=== PATIENT | male | born 1970 | race Hispanic/Latino ===

== ENCOUNTER 2020-02-16 15:48 | Inpatient (IN) | payer OTHER, SELFPAY ==
[~2020-02-16 15:48] MED LIST: EPINEPHrine 1 MG/10 ML Abboject SYRINGE ONE; Sodium Bicarb 50 MEQ/50 ML Abboject 8.4% SYRINGE ONE
[2020-02-16] MEDS ORDERED: Lorazepam 2 MG/ML VIAL ONE (16:21)
[2020-02-16 16:45] LABS: Bilirubin 1+ (Negative); Blood, Urine 3+ (Negative); Clarity Extra Turbid (Clear); Glucose, Urine (Dipstick) Normal (Negative); Ketone, Urine Trace mg/dL (Negative); Leukocyte 250 Leu/uL (Negative); Nitrite Negative (Negative); Protein, Urine (Dipstick) 200 mg/dL (Neg-Trace); Specific Gravity, Urine 1.022 (1.002-1.036); Squamous Epithelial 0-3 HPF (0-3); Transitional Epithelial 0-3 HPF (None Seen); WBC/HPF 21-50 HPF (0-3); pH, Urine 5.5 (5.0-9.0)
[2020-02-16 16:54] LABS: Bacteria/HPF None Seen HPF (None Seen)
[2020-02-16] MEDS ORDERED: Dextrose 50% Abboject 50 ML SYRINGE ONE ×2 (18:04→18:07)
--- NOTE | 2020-02-16 18:31 | RAD ---
PORTABLE CHEST: 02/16/20 HISTORY: Renal failure. Abdominal pain. Lungs show no evidence of infiltrate. Heart size upper normal. Mild vascular engorgement. Evidence of old right clavicle fracture with slight deformity. IMPRESSION: No acute lung process apparent. POS: AGW
[2020-02-16 18:34] LABS: Actual Bicarbonate (HCO3a) 7.7 mEq/L (22-28); Analyzer IN Cardio ER; Base Excess (BEa) -27.7 mEq/L (-2.0 to +3.0); CO2 Tension 54.3 mmHg (35.0-45.0); Calcium, Ionized (arterial) 1.09 mmol/L (1.12-1.30); Hemoglobin (Hb) 13.5 g/dL (14.0-18.0); O2 Tension (PaO2), arterial 77.2 mmHg (80.0-100.0); Potassium - ABG Lab 4.76 mmol/L (3.70-5.30)
[2020-02-16 18:37] LABS: ALV-art Gradient 140.125 mmHg (0-20); Puncture Site R RADIAL; pH, Arterial 6.77 (7.35-7.45)
[2020-02-16 18:40] LABS: ALT (SGPT) 279 U/L (8-55); AST (SGOT) 808 U/L (5-34); Albumin 2.2 g/dL (3.5-5.0); Alkaline Phosphatase 97 U/L (40-110); BUN (Urea Nitrogen) 25 mg/dL (8.4-25.7); Bilirubin, Total 10.1 mg/dL (0.2-1.2); Calc. Creatinine Clearance 0 mL/min (70-130); Calcium 7.2 mg/dL (7.8-10.44); Chloride 102 mmol/L (98-107); Estimated GFR-MDRD 45; Globulin 2.3 g/dL (2.4-3.5); Protein, Total 4.5 g/dL (6.0-8.3); Sodium 132 mmol/L (136-145)
[2020-02-16 18:46] LABS: Carbon Dioxide Less than 8 mmol/L (22-29); Glucose 49 mg/dL (70-105)
[2020-02-16] MEDS ORDERED: Norepinephrine 8 MG/0.9% NS 250 ML ONE (18:46)
[2020-02-16] MEDS ORDERED: EPINEPHrine 1 MG/10 ML Abboject SYRINGE ONE (18:48)
[2020-02-16] MEDS ORDERED: Ketamine 50 MG/ML (10ML VIAL) ONE (18:51)
[2020-02-16] MEDS ORDERED: Rocuronium Bromide 10 MG/ML (10ML VIAL) ONE (18:51)
[2020-02-16 19:30] LABS: Actual Bicarbonate (HCO3a) 7.4 mEq/L (22-28); Analyzer IN Cardio ER; Base Excess (BEa) -25.9 mEq/L (-2.0 to +3.0); CO2 Tension 41.7 mmHg (35.0-45.0); Calcium, Ionized (arterial) 1.08 mmol/L (1.12-1.30); Carboxyhemoglobin (COHb) 0.3 gm% (0.0-3.0); Hemoglobin (Hb) 13.9 g/dL (14.0-18.0); O2 Tension (PaO2), arterial 198.3 mmHg (80.0-100.0); Potassium - ABG Lab 4.81 mmol/L (3.70-5.30)
[2020-02-16 19:39] LABS: pH, Arterial 6.87 (7.35-7.45)
[2020-02-16 19:40] LABS: ALV-art Gradient 462.575 mmHg (0-20); Puncture Site L RADIAL
--- NOTE | 2020-02-16 19:52 | RAD ---
PORTABLE SUPINE CHEST: 02/16/20 INDICATIONS: Post intubation. COMPARISON: Film earlier today. FINDINGS/IMPRESSION: ET tube has been placed and tip is above the jorge. An NG tube is in place and this tube passes thro ugh the EG junction. Mild cardiomegaly and mild vascular engorgement. No focal infiltrate or consolidation. No interval ch isela in the appearance of the chest. POS: AGW
[2020-02-16] MEDS ORDERED: Electrolyte Replacement Protoc 1 EACH EACH IVPB PRN (20:33)
[2020-02-16] MEDS ORDERED: Acetaminophen 325 MG Suppository PR PRN (20:33)
[2020-02-16] MEDS ORDERED: Dextrose 5% in Water 1,000 ML IV PRN (20:33)
--- NOTE | 2020-02-16 20:43 | PDOC.HHP ---
Hospitalist HPI - History of Present Illness AMS History of Present Illness: -year-old gentleman with a history of liver cirrhosis presented to [facility] due to abdominal pain and bilateral lower extremity pain 4 days duration as well as shortness of breath. Work-up at the hospital revealed lacti c acid of 14, potassium of 2.6, elevated bilirubin and liver enzymes, creatinine of 2.1. CT scan of the abdomen and pelvis done showed cirrhotic liver with portal hypertension and splenomegaly as well as perinephric stranding. Patient was given a bolus of normal saline given IV Zosyn and vancomycin, given potassium replacement. He then developed hypoxia for which he was placed on oxygen by nasal cannula. Patient was also noted to be hypothermic and hypotensive and tachypneic. Patient was then transferred here for further management. ED Course: In the ED patient was given another bolus of normal saline, ammonia level, repeat lactate, blood cultures and urine cultures were obtained. Patient desaturated on oxygen by nasal cannula. Arterial blood gas showed severe metabolic acidosis with a pH of 6.7. His BMP showed severe metabolic acidosis with a bicarb of less than 8. Patient was subsequently intubated. He was still hypotensive and hypothermic. Ammonia level was 60. He was also hypoglycemic with blood glucose in the 40s. Patient started on Levophed drip. Warming blanket placed. He was also started on bicarb drip after bolus of 2 Amps of bicarb. Hospitalist ROS - Review of Systems ROS unobtainable: due to mental status Hospitalist History - Past Medical History Cardiac: reports: Other (Alcoholic liver cirrhosis) - Past Surgical History Other Surgical History: Not known - Family History Other Family History: Unable to obtain. - Social History Other Social History: There is a report he quit drinking. - Exam General - other findings: Unresponsive Eye: PERRL, scleral icterus ENT: normocephalic atraumatic ENT - other findings: Intubated Neck: supple, symmetric, no JVD Heart: diminshed peripheral pulses Heart - other findings: Tachycardic. Respiratory: CTAB, no wheezes Gastrointestinal: soft, non-tender, non-distended, normal bowel sounds Extremities: no cyanosis, no edema Skin: normal turgor Neurological - other findings: Sedated Psychiatric - other findings: Sedated. Hospitalist Results - Labs Result Diagrams: 02/17/20 04:51 02/17/20 04:51 Lab results: ABG pH 6.87 (7.35-7.45) L* 02/16/20 19:20 ABG pCO2 41.7 mmHg (35.0-45.0) 02/16/20 19:20 ABG pO2 198.3 mmHg (80.0-100.0) H 02/16/20 19:20 Sodium 132 mmol/L (136-145) L 02/16/20 16:45 Potassium 3.0 mmol/L (3.5-5.1) L 02/16/20 16:45 Chloride 102 mmol/L (98-107) 02/16/20 16:45 Carbon Dioxide Less than 8 mmol/L (22-29) L* 02/16/20 16:45 BUN 25 mg/dL (8.4-25.7) 02/16/20 16:45 Creatinine 1.62 mg/dL (0.7-1.3) H 02/16/20 16:45 Glucose 49 mg/dL (70-105) L* 02/16/20 16:45 Lactic Acid Greater than 13.4 mmol/L (0.5-2.2) H* 02/16/20 16:32 Calcium 7.2 mg/dL (7.8-10.44) L 02/16/20 16:45 Total Bilirubin 10.1 mg/dL (0.2-1.2) H 02/16/20 16:45 AST 808 U/L (5-34) H 02/16/20 16:45 ALT 279 U/L (8-55) H 02/16/20 16:45 Alkaline Phosphatase 97 U/L (40-110) 02/16/20 16:45 Ammonia 67 umol/L (18-72) 02/16/20 16:32 Serum Total Protein 4.5 g/dL (6.0-8.3) L 02/16/20 16:45 Albumin 2.2 g/dL (3.5-5.0) L 02/16/20 16:45 Urine Ketones Trace mg/dL (Negative) A 02/16/20 16:28 Urine Blood 3+ (Negative) A 02/16/20 16:28 Urine Nitrite Negative (Negative) 02/16/20 16:28 Ur Leukocyte Esterase 250 Lesvia/uL (Negative) A 02/16/20 16:28 Urine RBC 4-6 HPF (0-3) A 02/16/20 16:28 Urine WBC 21-50 HPF (0-3) A 02/16/20 16:28 Ur Squamous Epith Cells 0-3 HPF (0-3) 02/16/20 16:28 Urine Bacteria None Seen HPF (None Seen) 02/16/20 16:28 Hospitalist H&P A/P - Problem (1) Septic shock Code(s): A41.9 - SEPSIS, UNSPECIFIED ORGANISM; R65.21 - SEVERE SEPSIS WITH SEPTIC SHOCK Status: Acute Assessment and Plan: Source of sepsis likely acute pyelonephritis. Aggressive IV hydration D5 W+ 3 Amp bicarb. Levophed drip. Aggressive antibiotic therapy-cefepime and vancomycin. Follow blood cultures and urine culture. Obtain sputum culture if possible. (2) Acute respiratory failure with hypoxia Code(s): J96.01 - ACUTE RESPIRATORY FAILURE WITH HYPOXIA Status: Acute Assessment and Plan: Secondary to sepsis. Patient on mechanical ventilation. Consulted pulmonary to assist with management. (3) Metabolic acidosis Code(s): E87.2 - ACIDOSIS Status: Acute Assessment and Plan: Secondary to sepsis. Obtain alcohol level. Patient given 2 Amps of bicarb Bicarb drip Repeat venous blood gas in 6 hours and repeat bicarb boluses as needed for target pH of 7.2. Monitor BMP (4) Hypoglycemia Code(s): E16.2 - HYPOGLYCEMIA, UNSPECIFIED Status: Acute Assessment and Plan: Secondary to liver failure and acidosis. Hypoglycemia protocol initiated. D5W infusion. Monitor glucose every 1 hour. D50 boluses as needed. (5) Alcoholic cirrhosis of liver Code(s): K70.30 - ALCOHOLIC CIRRHOSIS OF LIVER WITHOUT ASCITES Status: Acute Qualifiers: Ascites presence: without ascites Qualified Code(s): K70.30 - Alcoholic cirrhosis of liver without ascites Assessment and Plan: Ammonia level unremarkable Check coagulation profile to assess for extent of liver failure. (6) Acute pyelonephritis Code(s): N10 - ACUTE PYELONEPHRITIS Status: Acute Assessment and Plan: UA suggest the presence of UTI. CT abdomen pelvis showed perinephric stranding. Aggressive antibiotic therapy. Follow cultures. Lopez catheter is in place. - Plan Plan: Critical care time spent was about 55 minutes.
[2020-02-16] MEDS ORDERED: Ventilator Sedation Protocol 1 EACH FS SCH (20:45)
[2020-02-16] MEDS ORDERED: Morphine 2 MG/ML VIAL SLOW IVP PRN (21:00)
[2020-02-16] MEDS ORDERED: Vancomycin 1 GM in Premix Bag 1 BAG IVPB SCH (21:00)
[2020-02-16] MEDS ORDERED: Propofol 1,000 MG/100 ML VIAL IV PRN (21:00)
[2020-02-16] MEDS ORDERED: Famotidine/PF 20 mg/2ml Vial SLOW IVP SCH (21:00)
[2020-02-16] MEDS ORDERED: Fentanyl BOLUS 250 ML IVPB PRN (21:00)
[2020-02-16] MEDS ORDERED: Lorazepam 2 MG/ML VIAL SLOW IVP PRN (21:00)
[2020-02-16] MEDS ORDERED: Cefepime 2 GM in Sodium Chloride 0.9% 100 ML IVPB SCH (21:00)
[2020-02-16] MEDS ORDERED: Propofol BOLUS 1,000 MG/100 ML VIAL IV PRN (21:00)
[2020-02-16] MEDS ORDERED: DISCONTINUE PREVIOUS NARCOTIC PAIN MEDICATIONS AND BENZODIAZEPINES FS SCH (21:00)
[2020-02-16] MEDS ORDERED: fentaNYL Citrate/PF 2,000 MCG in Sodium Chloride 0.9% 60 ML IV SCH (21:00)
[2020-02-16 21:41] LABS: Lactic Acid 16.2 mmol/L (0.5-2.2)
[2020-02-16 21:45] LABS: SARS-CoV-2 NAA Rapid Test Not Detected (NotDetected)
[2020-02-16 21:47] LABS: PTT 98.4 sec (22.9-36.1); Prothrombin Time 93.5 sec (12.0-14.7)
[2020-02-16 21:49] LABS: INR-International Normal Ratio 12.7
[2020-02-16 21:52] VITALS: BMI 30.4
[2020-02-16 21:54] LABS: Actual Bicarbonate (HCO3a) 6.2 mEq/L (22-28); Base Excess (BEa) -25.8 mEq/L (-2.0 to +3.0); CO2 Tension 31.9 mmHg (35.0-45.0); Calcium, Ionized (arterial) 0.98 mmol/L (1.12-1.30); Carboxyhemoglobin (COHb) 0.4 gm% (0.0-3.0); Hemoglobin (Hb) 13.7 g/dL (14.0-18.0); Potassium - ABG Lab 5.18 mmol/L (3.70-5.30)
[2020-02-16 21:58] LABS: pH, Arterial 6.91 (7.35-7.45)
[2020-02-16 21:59] LABS: ALV-art Gradient 443.525 mmHg (0-20); Puncture Site RR
[2020-02-16 22:00] LABS: Alcohol Less than 10 mg/dL (Less than 10); BUN (Urea Nitrogen) 28 mg/dL (8.4-25.7); Calc. Creatinine Clearance 53 mL/min (70-130); Calcium 6.2 mg/dL (7.8-10.44); Carbon Dioxide Less than 8 mmol/L (22-29); Chloride 103 mmol/L (98-107); Estimated GFR-MDRD 38; Glucose 189 mg/dL (70-105); Potassium 4.9 mmol/L (3.5-5.1); Sodium 132 mmol/L (136-145)
[2020-02-16] MEDS ORDERED: Sodium Bicarb 50 MEQ/50 ML Abboject 8.4% SYRINGE ONE ×2 (22:03→22:05)
[2020-02-16] MEDS ORDERED: Sodium Bicarb 50 MEQ/50 ML Abboject 8.4% SYRINGE IVP SCH (22:15)
[2020-02-16] MEDS: Sodium Bicarbonate 150 MEQ in Dextrose 5% in Water 1,000 ML IV SCH (22:19)
[2020-02-16] MEDS ORDERED: Vasopressin 20 UNIT, Admixture Fee 1 EACH in Sodium Chloride 0.9% 50 ML IV PRN (22:24)
[2020-02-16] MEDS: Albumin 25% 25 GM/100 ML BOT IVPB SCH (22:26)
[2020-02-16] MEDS ORDERED: Phytonadione 10 MG in Sodium Chloride 0.9% 50 ML IVPB SCH (23:00)
[2020-02-16] MEDS: Hydrocortisone Sod Succ/PF 100 MG in Sodium Chloride 0.9% 50 ML IVPB SCH (23:03)
--- NOTE | 2020-02-16 23:07 | CON ---
DATE OF CONSULTATION: 02/16/2020 CONSULTING PHYSICIAN: Bronson Wall MD from the hospitalist group. REASON FOR CONSULTATION: Critical care management. Following encompasses 45 minutes of critical care time. HISTORY OF PRESENT ILLNESS: The patient is a 49-year-old male, who apparently has a history of liver cirrhosis, who presented to the Hospital earlier today with abdominal pain as well as lower extremity pain. He was found to have severe lactic acidosis and altered mental status. He apparently became obtunded in the emergency room and was intubated. He was also noted to be hypotensive and hypothermic with an elevated ammonia level. History and chart are very sparse. PAST MEDICAL HISTORY: Apparent cirrhosis of liver. PAST SURGICAL HISTORY: Not known. ALLERGIES: UNKNOWN. MEDICATIONS: Prior to admission, none. SOCIAL HISTORY: Unknown. REVIEW OF SYSTEMS: Cannot be obtained because the patient is intubated. PHYSICAL EXAMINATION: VITAL SIGNS: Pulse is 123, O2 saturation 100%, respiratory rate 28, and blood pressure 99/55. GENERAL: This patient is jaundiced and has icteric sclerae. He is unresponsive to deep painful stimuli. Apparently, he has not received any sedation since being given Ativan in the ER. HEENT: Shows icteric sclerae. Oropharynx is intubated. NECK: No JVD. LUNGS: Clear anteriorly. CARDIOVASCULAR: S1 and S2. Tachycardic without murmur. ABDOMEN: Soft and nontender to palpation. EXTREMITIES: No clubbing, cyanosis, or edema. IMAGING DATA: The chest x-ray does not show any focal findings. He is intubated. He has an NG tube in stomach. LABORATORY DATA: ABG; pH of 6.91, pCO2 of 31, and pO2 of 87, that is on SIMV rate 28, tidal volume 500, PEEP 7, pressure support 10, and FiO2 of 80%. Sodium 132, potassium 4.9, chloride 103, CO2 less than 8, BUN 28, creatinine 1.8, glucose 189, lactate 16.2, AST 808, ALT 279, total bilirubin 10.1, albumin 2.2, and cortisol 33. INR is 12.7 and PTT 98.4. Alcohol level is less than 10. Urinalysis showed 21 to 50 white blood cells. Apparently imaging of his abdomen from other hospital showed perinephric stranding consistent with urinary tract infection/pyelonephritis. ASSESSMENT: 1. Septic shock secondary to urinary tract infection/pyelonephritis. 2. Severe metabolic acidosis. 3. Acute on chronic liver failure. 4. Acute respiratory failure requiring mechanical ventilation. PLAN: This patient presents with multiple organ failure on top of chronic liver disease. Given the degree of his metabolic acidosis, his condition is grave and he is unlikely to survive. We are trying to give him extra bicarbonate for supportive measures. He is on empiric antibiotics. He is on Levophed. He should be started on stress dose hydrocortisone as that sometimes helpful in acute liver failure. He needs to be given FFP to help correct his coagulopathy. We will need to monitor his blood gases and bolus bicarb as needed. Job ID: [id number]
[2020-02-16] MEDS: Norepinephrine 8 MG/0.9% NS 250 ML IVPB PRN (23:27)
[2020-02-17 00:10] LABS: Actual Bicarbonate (HCO3a) 7.2 mEq/L (22-28); Base Excess (BEa) -22.6 mEq/L (-2.0 to +3.0); CO2 Tension 28.5 mmHg (35.0-45.0); Calcium, Ionized (arterial) 0.87 mmol/L (1.12-1.30); Carboxyhemoglobin (COHb) 0.2 gm% (0.0-3.0); Hemoglobin (Hb) 12.6 g/dL (14.0-18.0); O2 Tension (PaO2), arterial 85.6 mmHg (80.0-100.0); Potassium - ABG Lab 5.34 mmol/L (3.70-5.30)
[2020-02-17] MEDS: Dextrose 50% Abboject 50 ML SYRINGE SLOW IVP PRN ×2 (00:10→02:43)
[2020-02-17 00:17] LABS: pH, Arterial 7.02 (7.35-7.45)
[2020-02-17 00:18] LABS: ALV-art Gradient 449.175 mmHg (0-20); Puncture Site RRA
[2020-02-17] MEDS ORDERED: Sodium Bicarb 50 MEQ/50 ML Abboject 8.4% SYRINGE ONE ×4 (00:20→04:38)
[2020-02-17] MEDS ORDERED: Sodium Bicarb 50 MEQ/50 ML Abboject 8.4% SYRINGE IVP SCH ×3 (00:45→04:45)
[2020-02-17 02:12] VITALS: BP 83/46
[2020-02-17] MEDS ORDERED: Dextrose 50% Abboject 50 ML SYRINGE ONE (02:40)
[2020-02-17] MEDS ORDERED: Phenylephrine 40 MG in Sodium Chloride 0.9% 250 ML 250 ML IVPB SCH (02:45)
[2020-02-17] MEDS: Albumin 25% 25 GM/100 ML BOT IVPB SCH (03:29)
[2020-02-17] MEDS: Norepinephrine 8 MG/0.9% NS 250 ML IVPB PRN (03:48)
[2020-02-17 04:25] VITALS: TEMP 98.1
[2020-02-17 04:26] LABS: Actual Bicarbonate (HCO3a) 6.9 mEq/L (22-28); Base Excess (BEa) -20.5 mEq/L (-2.0 to +3.0); Calcium, Ionized (arterial) 0.72 mmol/L (1.12-1.30); Carboxyhemoglobin (COHb) 0.3 gm% (0.0-3.0); O2 Tension (PaO2), arterial 121.6 mmHg (80.0-100.0); Potassium - ABG Lab 6.45 mmol/L (3.70-5.30)
[2020-02-17 04:28] LABS: CO2 Tension 21.3 mmHg (35.0-45.0); Puncture Site RRA; pH, Arterial 7.13 (7.35-7.45)
[2020-02-17 04:30] LABS: ALV-art Gradient 422.175 mmHg (0-20)
[2020-02-17 05:07] LABS: Prothrombin Time 43.1 sec (12.0-14.7)
[2020-02-17 05:09] LABS: INR-International Normal Ratio 4.6
[2020-02-17 05:18] LABS: Platelet Count 10 thou/uL (130-400)
[2020-02-17 05:25] LABS: Band 22 % (5-11); Elliptocytes SLIGHT = 2-5 cells (100X) (0-1/hpf); Eosinophils 2 % (0-10); Hemoglobin 8.6 g/dL (14.0-18.0); Lymphocytes 13 % (21-51); MDiff Complete? YES; Mean Corpuscular HGB CONC 33.8 g/dL (32.0-36.0); Mean Corpuscular Hemoglobin 36.7 pg (27.0-31.0); Mean Platelet Volume 13.6 fL (7.4-10.4); Metamyelocyte 12 % (0-0); Monocytes 15 % (0-10); Neutrophil 36 % (42-75); Nucleated RBC 14 % (0); Platelet Morphology Comment Appears Decreased; RBC Distribution Width 16.3 % (11.5-14.5); Red Blood Cell (RBC) Count 2.34 mill/uL (4.70-6.10); Reflex for Review?? YES; Vacuoles SLIGHT; White Blood Cell (WBC) Count 3.1 thou/uL (4.8-10.8)
[2020-02-17 05:30] LABS: ALT (SGPT) 280 U/L (8-55); AST (SGOT) 1104 U/L (5-34); Albumin 2.1 g/dL (3.5-5.0); Alkaline Phosphatase 128 U/L (40-110); Anion Gap 50 mmol/L (10-20); BUN (Urea Nitrogen) 30 mg/dL (8.4-25.7); Bilirubin, Total 8.3 mg/dL (0.2-1.2); Calc. Creatinine Clearance 39 mL/min (70-130); Calcium 5.8 mg/dL (7.8-10.44); Carbon Dioxide 10 mmol/L (22-29); Chloride 95 mmol/L (98-107); Estimated GFR-MDRD 26; Globulin 1.2 g/dL (2.4-3.5); Glucose 60 mg/dL (70-105); Potassium 7.3 mmol/L (3.5-5.1); Protein, Total 3.3 g/dL (6.0-8.3); Sodium 148 mmol/L (136-145)
[2020-02-17] MEDS: Hydrocortisone Sod Succ/PF 100 MG in Sodium Chloride 0.9% 50 ML IVPB SCH (05:42)
[2020-02-17] MEDS: Sodium Bicarbonate 150 MEQ in Dextrose 5% in Water 1,000 ML IV SCH (05:43)
[2020-02-17] MEDS ORDERED: Calcium Gluc 4.6 MEQ/10 ML (100 MG/ML) SLOW IVP SCH (06:00)
--- NOTE | 2020-02-17 06:13 | PDOC.EVN ---
Event Note - Event Note Event Note: Code blue called at 0556, pt asystole, CPR began. Pt in septic shock not improving after maximal therapy including regular bicarb administration and pressors overnight. Resuscitation unsuccessful after multiple rounds, considering pts overall prognosis and previous interventions overnight, resuscitation was discontinued after consultation with Dr. Wright. TOD 0603. Family notified.
[2020-02-17] MEDS ORDERED: FLU VACC QS2020-21(6MOS UP)/PF 60 MCG/0.5 ML SYRINGE IM ONE (09:00)
[2020-02-17] MEDS ORDERED: Prevnar 13-Val Conj/PF 0.5 ML SYRINGE IM ONE (09:00)
[2020-02-17] MEDS ORDERED: Vancomycin 1.5 GRAM/300 ML BAG 1.5 GM in Premix Bag 1 BAG IVPB SCH (13:00)
== END 2020-02-17 06:02 | disposition expired | DRG 871 ==
LOC: ERS 15:48 → CCU 18:47
PROVIDERS: ADMIT Family Medicine; ATTEND Family Medicine
PROC: 5A1935Z Respiratory Ventilation, Less than 24 Consecutive Hours (ICD-10-PCS; principal; 2020-02-16)
PROC: 3E033XZ Introduction of Vasopressor into Peripheral Vein, Percutaneous Approach (ICD-10-PCS; 2020-02-16)
PROC: 06HY33Z Insertion of Infusion Device into Lower Vein, Percutaneous Approach (ICD-10-PCS; 2020-02-16)
PROC: 0BH17EZ Insertion of Endotracheal Airway into Trachea, Via Natural or Artificial Opening (ICD-10-PCS; 2020-02-16)
PROC: 8E0ZXY6 Isolation (ICD-10-PCS; 2020-02-16)
PROC: 30233L1 Transfusion of Nonautologous Fresh Plasma into Peripheral Vein, Percutaneous Approach (ICD-10-PCS; 2020-02-17)
PROC: 30233K1 Transfusion of Nonautologous Frozen Plasma into Peripheral Vein, Percutaneous Approach (ICD-10-PCS; 2020-02-17)
PROC: 5A12012 Performance of Cardiac Output, Single, Manual (ICD-10-PCS; 2020-02-17)
DX: A41.9 Sepsis, unspecified organism (principal); R65.21 Severe sepsis with septic shock; J96.01 Acute respiratory failure with hypoxia; K72.00 Acute and subacute hepatic failure without coma; E87.2 Acidosis; D68.9 Coagulation defect, unspecified; N10 Acute pyelonephritis; Z20.828 Contact with and (suspected) exposure to other viral communicable diseases; K70.30 Alcoholic cirrhosis of liver without ascites; E16.2 Hypoglycemia, unspecified; K72.10 Chronic hepatic failure without coma; Z79.899 Other long term (current) drug therapy
CPT/HCPCS: 31500; 36415; 36416; 36430; 36556; 71045; 80053; 80307; 81003; 81015; 82140; 82533; 82805; 83605; 84443; 85025; 85060; 85610; 85730; 86850; 86900; 86901; 87040; 87077; 87086; 87149; 87186; 92950; 94002; 94003; 96361; 96365; 96366; 96374; 96375; 96376; J0171; J0692; J1720; J2001; J2060; J2370; J3430; J3490; J7050; J7070; P9047; P9059; S0028; U0002